=== PATIENT | male | born 1985 | race Two or more races ===

== ENCOUNTER 2016-09-15 08:41 | Emergency (ER) | payer BC ==
[2016-09-15 09:09] VITALS: BP 158/69; PULSE 62; RESP 16; TEMP 98.6; O2SAT 98
--- NOTE | 2016-09-15 09:22 | UCPHY ---
H & P Patient Type: New Chief Complaint Nursing Narrative: pt reports pain with walking on the dorsal/ lateral aspect of foot since . Might have been stepped on while playing indoor soccer Time Seen by Provider: 09/15/16 08:56 HPI/ROS: CHIEF COMPLAINT: Foot pain HISTORY OF PRESENT ILLNESS: The patient is a 31-year-old man who comes to the Urgent Care complaining of pain at the base of his left great toe. He states that yesterday while playing soccer someone stepped on a with cleats. He has been ambulatory since then. He denies ankle or leg pain. No bruising or swelling. He classifies his pain is moderate. REVIEW OF SYSTEMS: Constitutional: denies: chills, fever, recent illness, recent injury EENTM: denies: blurred vision, double vision, nose congestion Respiratory: denies: cough, shortness of breath Cardiac: denies: chest pain, irregular heart rate, lightheadedness, palpitations Gastrointestinal/Abdominal: denies: abdominal pain, diarrhea, nausea, vomiting, blood streaked stools Genitourinary: denies: dysuria, frequency, hematuria, pain Musculoskeletal: See HPI Skin: denies: lesions, rash, jaundice, bruising Neurological: denies: headache, numbness, paresthesia, tingling, dizziness, weakness Hematologic/Lymphatic: denies: blood clots, easy bleeding, easy bruising Immunologic/allergic: denies: HIV/AIDS, transplant EXAM: GENERAL: Well-appearing, well-nourished and in no acute distress. HEAD: Atraumatic, normocephalic. EYES: Pupils equal round and reactive to light, extraocular movements intact, sclera anicteric, conjunctiva are normal. ENT: TMs normal, nares patent, oropharynx clear without exudates. Moist mucous membranes. NECK: Normal range of motion, supple without lymphadenopathy or JVD. LUNGS: Breath sounds clear to auscultation bilaterally and equal. No wheezes rales or rhonchi. HEART: Regular rate and rhythm without murmurs, rubs or gallops. ABDOMEN: Soft, nontender, normoactive bowel sounds. No guarding, no rebound. No masses appreciated. BACK: No CVA tenderness, no spinal tenderness, step-offs or deformities EXTREMITIES: foot with pain at the base of the great toe. Normal range of motion and strength. Normal sensation and capillary refill. No pain with axial loading. Pain with direct palpation. No pain to the arch of the foot or heel or ankle. Normal range of motion, no pitting or edema. No clubbing or cyanosis. NEUROLOGICAL: Cranial nerves II through XII grossly intact. Normal speech, normal gait. 5/5 strength, normal movement in all extremities, normal sensation PSYCH: Normal mood, normal affect. SKIN: Warm, dry, normal turgor, no visible rashes or lesions. Source: Patient Exam Limitations: No limitations - Personal History Current Tetanus/Diphtheria Vaccine: Yes Current Tetanus Diphtheria and Acellular Pertussis (TDAP): Yes Tetanus Vaccine Date: < 10 years - Medical/Surgical History Hx Asthma: No Hx Chronic Respiratory Disease: No Hx Diabetes: No Hx Cardiac Disease: No Hx Renal Disease: No Hx Cirrhosis: No Hx Alcoholism: No Hx HIV/AIDS: No Hx Splenectomy or Spleen Trauma: No Other PMH: none - Family History Significant Family History: No pertinent family hx - Social History Smoking Status: Never smoked Alcohol Use: Sober Drug Use: None Constitutional: Initial Vital Signs Temperature (C) 37.0 C 09/15/16 09:05 Heart Rate 62 09/15/16 09:05 Respiratory Rate 16 09/15/16 09:05 Blood Pressure 158/69 H 09/15/16 09:05 O2 Sat (%) 98 09/15/16 09:05 O2 Delivery Mode Room Air Allergies/Adverse Reactions: No Known Allergies Allergy (Unverified 05/12/16 18:58) Home Medications: Medication Instructions Recorded Fexofenadine HCl [Krystyna Allergy] 60 mg PO TID PRN #15 tablet 05/12/16 predniSONE 60 mg PO DAILY 5 Days 05/12/16 Medical Decision Making - Diagnostics Imaging: X-ray: Foot x-ray was obtained. I viewed the images myself on the PACS system. My interpretation of the images is: Negative for fracture. The radiologist interpretation is pending. ED Course/Re-evaluation: We discussed the x-ray results the patient is relieved. He declines further workup or testing at this time and is eager to go home. We discussed indications for returning. Differential Diagnosis: Partial list of the Differential diagnosis considered include but were not limited to; contusion, fracture and although unlikely based on the history and physical exam, I also considered dislocation, foreign body, puncture wound, assault. I discussed these differential diagnoses and the plan with the patient as well as the usual and expected course. The patient understands that the diagnosis is provisional and that in medicine we are not always correct and that further workup is often warranted. Usual and customary warnings were given. All of the patient's questions were answered. The patient was instructed to return to the emergency department should the symptoms at all worsen or return, otherwise to followup with the physician as we discussed. Departure - Departure Disposition: Home, Routine, Self-Care Clinical Impression: Contusion, foot Qualifiers: Qualifier Code: (S90.32XA) Contusion of left foot, initial encounter Condition: Fair Instructions: Foot Contusion (ED) Referrals: IN STATE,. [Primary Care Provider] - As per Instructions - PQRS PQRS Measurement: Not applicable
--- NOTE | 2016-09-15 09:39 | DX ---
Foot Minimum 3 Views Left History: Pain following trauma. Left foot stepped on during soccer game. Findings: Osseous structures are intact without fracture. Joint spaces are normal. Soft tissues are n ormal. Impression: Normal foot series.
== END 2016-09-15 10:25 | disposition home or self-care (01) ==
LOC: CED 08:41
DX: S90.32XA Contusion of left foot, initial encounter (principal); W50.0XXA Accidental hit or strike by another person, initial encounter
CPT/HCPCS: 73630-PO; 99204-PO; G0463-PO

== ENCOUNTER 2016-11-15 07:02 | Emergency (ER) | payer BC ==
[2016-11-15 07:16] VITALS: BP 132/80; PULSE 76; RESP 18; TEMP 98.6; O2SAT 98
[2016-11-15] MEDS ORDERED: IBUPROFEN 200 MG TAB PO ONE (07:20)
--- NOTE | 2016-11-15 07:37 | UCPHY ---
H & P Time Seen by Provider: 11/15/16 07:06 Patient Type: Established HPI/ROS: This patient injured his left dominant hand playing soccer last night. He fell during a play an landed directly on the hand. He reports ecchymosis and moderate pain since that time associated with moderate swelling. The pain worsens with 5th finger movement with no other exacerbating or alleviating factors. He has not taken any medication today for the discomfort. ROS: No numbness or tingling. No open wounds. No other injuries. 5 point ROS is otherwise negative Past Medical/Surgical History: Otherwise healthy Social History: He does technical work and types at work. Left hand dominant Smoking Status: Never smoked Physical Exam: Physical Exam Vital signs are normal. General: No acute distress HEENT: Atraumatic. Eyes: Pupils equal and react to light. Extraocular motions are intact. Lungs: No respiratory distress. Cardiac: Brisk capillary refill is intact throughout. Pulses are 2+ and symmetric in the affected extremity. Skin: No rash or pallor. Extremities: Atraumatic and normal except for left hand Left hand: Patient has ecchymosis and swelling to the 5th metacarpal region. There is no malrotation of the 5th finger when viewed on end. He has mild limitation in range of motion of the 5th finger due to pain. There is no associated wrist swelling or tenderness or other hand swelling or tenderness. No finger injuries are noted. Neuro: Alert and oriented x3 with no sensorimotor deficits. Initial differential diagnosis: 5th metacarpal fracture versus traumatic hematoma Constitutional: Initial Vital Signs Temperature (C) 37.0 C 11/15/16 07:13 Heart Rate 76 11/15/16 07:13 Respiratory Rate 18 11/15/16 07:13 Blood Pressure 132/80 H 11/15/16 07:13 O2 Sat (%) 98 11/15/16 07:13 O2 Delivery Mode Room Air Allergies/Adverse Reactions: No Known Allergies Allergy (Verified 11/15/16 07:13) Home Medications: Medication Instructions Recorded NK [No Known Home Meds] 11/15/16 Medical Decision Making - Diagnostics Imaging: Hand x-ray: Minimally displaced spiral fracture of the 5th metacarpal diaphysis without angulation by my interpretation ED Course/Re-evaluation: Ibuprofen p. o. I counseled the patient regarding his hand fracture He is placed in Orthoglass ulnar gutter splint by our tech with my supervision. He remains neurovascularly intact post splint application. I referred him to Dr. goddard-hand specialist for follow-up. - Data Points Medications Given: Discontinued Medications Ibuprofen (Motrin) 600 mg PO EDNOW ONE Stop: 11/15/16 07:21 Last Admin: 11/15/16 07:23 Dose: 600 mg Departure - Departure Disposition: Home, Routine, Self-Care Clinical Impression: Closed fracture of 5th metacarpal Qualifiers: Encounter type: initial encounter Metacarpal location: shaft Fracture alignment : nondisplaced Laterality: left Qualified Code(s): S62.357A - Nondisplaced fracture of shaft of fifth metacarpal bone, left hand, initial encounter for closed fracture Condition: Good Instructions: Hand Fracture (ED) Additional Instructions: Diagnosis: 5th metacarpal fracture Plan: Keep the splint on at all times-clean and dry Ibuprofen and Tylenol as needed for discomfort Call Dr. goddard-hand specialist arrange follow-up appointment for sometime within the next 3-5 days. Limit activity with the affected hand until it is healed. Referrals: NONE *PRIMARY CARE P,. [Primary Care Provider] - As per Instructions Marcus Goddard MD [Medical Doctor] - As per Instructions - PQRS PQRS Measurement: NA
== END 2016-11-15 07:50 | disposition home or self-care (01) ==
LOC: CED 07:02
DX: S62.321A Displaced fracture of shaft of second metacarpal bone, left hand, initial encounter for closed fracture (principal); W19.XXXA Unspecified fall, initial encounter; Y93.66 Activity, soccer
CPT/HCPCS: 29125-PO; 73130-PO; 99214-PO; G0463-PO

== ENCOUNTER 2017-02-19 23:31 | Emergency (ER) | payer BC ==
[2017-02-19 23:40] VITALS: O2SAT 96
[2017-02-19] MEDS ORDERED: NS 1,000 ML IV ONE (23:48)
--- NOTE | 2017-02-19 23:48 | EDPHY ---
H & P Stated Complaint: facial swelling, trouble breathing since 10 pm. Time Seen by Provider: 02/19/17 23:36 HPI/ROS: CHIEF COMPLAINT: [sensation of swelling in the throat and change in voice over the last 100 minutes ] HISTORY OF PRESENT ILLNESS: [previously healthy 31-year-old male, lb at with prior spells of both hives as well as spells of upper lip swelling without ever having any throat symptoms. He has now had developed of sore throat symptoms at 10:00 p.m.. This occurred some 0.5 hour after meal of chicken and a eggs that he prepaired himself with breathing said all of which he has had before without any untoward problems. Symptoms started at 10:00 p.m.. His sensation of discomfort in the throat along with some abdominal pain and change in phonation. The post does sound a little different and in particular is different to his friend who is here with him. 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 Likewise he has not have any shortness of breath or wheezing but he is having stuffy nose if he is having trouble breathing through the nose. Finally there is no itching the palms or soles nor sensation of lightheadedness or feeling faint. ] No new exposure to any of the following: Foods: No new Nuts, soy, berries, chocolate - he did have some peanut butter but this is from a chart almost empty thereby having had plenty of exposure prior, without difficulty Medications: None. No antibiotics or JOHN inhibitors or JOHN blockers Detergents or soaps: [none] Prior, similar problem: He has had a variety spells of hives and other times angioedema lip but never together - he is having neither 1 at this time. His never had any allergy workup for this. He has never seen any clinician for this as the subsided spontaneously within hours. Prior allergy work up: None Home treatment: Benadryl 25 mg p.o. REVIEW OF SYSTEMS: General: No difficulty with syncope or near syncope or palpitations or feeling faint HEENT: No swelling to the tongue, lips, only of the hypopharynx leading to a sensation of difficulty swallowing and sore throat along with change in voice Respiratory: No cough, no dyspnea. No pain or difficulty swallowing Cardiovascular: No chest pain, no palpitations. Gastrointestinal: No vomiting, no diarrhea but he did have abdominal pain also as noted above Musculoskeletal: No peripheral edema or swelling. No itching to the palms or soles Skin: no rashes Lymph: No lymphadenopathy Source: Patient Exam Limitations: No limitations - Personal History Current Tetanus Diphtheria and Acellular Pertussis (TDAP): Yes Tetanus Vaccine Date: < 10 years - Medical/Surgical History Hx Asthma: No Hx Chronic Respiratory Disease: No Hx Diabetes: No Hx Cardiac Disease: No Hx Renal Disease: No Hx Cirrhosis: No Hx Alcoholism: No Hx HIV/AIDS: No Hx Splenectomy or Spleen Trauma: No Other PMH: none - Family History Significant Family History: No pertinent family hx - Social History Smoking Status: Never smoked Alcohol Use: None Drug Use: None - Physical Exam Exam: General Appearance: Alert, no distress. Afebrile. Slightly Guttural phonation. No respiratory distress, relaxed, not panicky. Eyes: Pupils equal and round no pallor or injection. No icterus ENT, Mouth: Mucous membranes moist. Pharynx without erythema or exudate. Slight swelling to uvula, on the left side. TM Clear. Neck: No adenopathy. Supple. No JVD. Trachea in midline. Respiratory: There are no retractions, lungs are clear to auscultation. Cardiovascular: Regular rate and rhythm. Abdomen: Soft without guarding or rebound, but some mild mid to lower abdominal tenderness, no masses, bowel sounds normal. Neurological: Ox3. No motor weakness. Sensation intact. Gait nl. Skin: Warm and dry, no rashes. Musculoskeletal: No joint swelling. Extremities: No edema. Psychiatric: Normal affect. Patient is oriented X 3, there is no agitation or panic. Constitutional: Initial Vital Signs Temperature (C) 36.4 C 02/19/17 23:39 Heart Rate 65 02/19/17 23:39 Respiratory Rate 12 02/19/17 23:39 Blood Pressure 137/91 H 02/19/17 23:39 O2 Sat (%) 96 02/19/17 23:39 O2 Delivery Mode Room Air Allergies/Adverse Reactions: No Known Allergies Allergy (Verified 02/19/17 23:35) Home Medications: Medication Instructions Recorded EPINEPHRINE [EPIPEN] 0.3 mg IM ONCE #2 syr 02/20/17 Famotidine [Pepcid 20 MG (*)] 20 mg PO BID #4 tab 02/20/17 diphenhydrAMINE [Benadryl 50 MG 50 mg PO Q6 #8 cap 02/20/17 (*)] predniSONE [Prednisone] 30 mg PO BID #12 tablet 02/20/17 Medical Decision Making ED Course/Re-evaluation: He was given initial deven medications to include: 0.3 mg epi IM 25 mg of Benadryl IV 120 mg of Solu-Medrol IV 20 mg of Pepcid IV 1 L fluid, for concerns of fever to volume depletion in the setting of vascular incompetence Studies ordered were that of a Tryptase level which I explained to the patient will not be back for several days at a time. This is to aide in the further evaluation for an cryptozoologist to whom he was referred. Strep Screen negative, final pending. He was re-examined on 3 times with ensuing hour and showed no progression. The abdominal pain which was already improving, did seem to improve further. There is some mild resolution. Of note is that while the right side of the uvula is slightly reddened and slightly larger than the left he does not feel the throat to be more sore on 1 side or another. Furthermore he has not noted any adenopathy and there is none present at this time. As it is summer it is very unlikely this is represents strep phenomenon however will go ahead and do a strep throat checked. Finally the URI is a consideration as he does have the nasal stuffiness and a little irritation of the throat as noted above however, he has been feeling asymptomatic throughout the entire day earlier and without any prodrome of a viral nature or any seasonal allergic nature. Differential Diagnosis: Differential diagnosis includes but not limited to: Caustic ingestion, acute allergy, retropharyngeal abscess, globus hystericus, anaphylaxis, delayed hypersensitivity, viral or bacterial pharyngitis - Data Points Laboratory Results: 02/20/17 02/20/17 02/19/17 Unknown 01:00 23:40 Tryptase Pending Group A Strep Screen NEGATIVE (NEGATIVE) Group A Strep DNA Pending Medications Given: Discontinued Medications Diphenhydramine HCl (Benadryl Injection) 25 mg IVP EDNOW ONE Stop: 02/19/17 23:49 Last Admin: 02/20/17 00:03 Dose: 25 mg Epinephrine HCl (Epinephrine) 0.3 mg IM EDNOW ONE Stop: 02/19/17 23:41 Last Admin: 02/19/17 23:47 Dose: 0.3 mg Famotidine (Pepcid) 20 mg IVP EDNOW ONE Stop: 02/19/17 23:50 Last Admin: 02/20/17 00:03 Dose: 20 mg Sodium Chloride (Ns) 1,000 mls @ 0 mls/hr IV ONCE ONE; As Directed PRN Reason: Protocol Stop: 02/19/17 23:49 Last Admin: 02/20/17 00:03 Dose: 1,000 mls Methylprednisolone Sodium Succinate (Solu-Medrol) 125 mg IVP EDNOW ONE Stop: 02/19/17 23:50 Last Admin: 02/20/17 00:05 Dose: 125 mg Departure - Departure Disposition: Home, Routine, Self-Care Clinical Impression: Acute anaphylaxis Qualifiers: Encounter type: initial encounter Qualified Code(s): T78.2XXA - Anaphylactic shock, unspecified, initial encounter Condition: Fair Instructions: Food Allergy (ED), Anaphylaxis (ED) Additional Instructions: Call an cryptozoologist or get a referral by your PCP. Take the diet log that you generated for us with you Eat a bland diet for the next 48 hours The next 48 hours take the following medications: Benadryl 50 mg 4 times daily-available [id number] Prednisone 20 mg twice daily Pepcid 20 mg twice daily-available [id number] Keep the adrenaline prescription on you and with you at all times Referrals: Patient,NotPresent [Primary Care Provider] - As per Instructions Prescriptions: diphenhydrAMINE [Benadryl 50 MG (*)] 50 mg PO Q6 #8 cap EPINEPHRINE [EPIPEN] 0.3 mg IM ONCE #2 syr Famotidine [Pepcid 20 MG (*)] 20 mg PO BID #4 tab predniSONE [Prednisone] 30 mg PO BID #12 tablet
[2017-02-19] MEDS ORDERED: FAMOTIDINE 20 MG/2 ML SDV IVP ONE (23:49)
[2017-02-19] MEDS ORDERED: methylPREDNISolone SOD SUCC 125 MG/2 ML VIAL IVP ONE (23:49)
[2017-02-19] MEDS ORDERED: methylPREDNISolone SOD SUCC 125 MG/2 ML VIAL ONE (23:49)
[2017-02-19] MEDS ORDERED: FAMOTIDINE 20 MG/2 ML SDV ONE (23:50)
[2017-02-20 00:54] VITALS: BP 121/70; PULSE 72; RESP 17; TEMP 97.9
== END 2017-02-20 01:10 | disposition home or self-care (01) ==
LOC: CED 23:31
DX: T78.00XA Anaphylactic reaction due to unspecified food, initial encounter (principal)
CPT/HCPCS: 83520-90; 87880-PO; 96374; J1200